=== PATIENT | female | born 2000 | race Hispanic/Latino ===

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

== ENCOUNTER 2022-05-01 23:42 | Emergency (ER) | payer MEDICAID, OTHER ==
[2022-05-02 00:22] LABS: #Eosinphils 0.1 10x3/uL (0.0-0.5); #Monocytes 0.7 10x3/uL (0.0-1.1); #Neutrophils 8.5 10x3/uL (1.5-8.4); %Basophils 0.2 % (0.0-2.0); %Eosinophils 1.1 % (0.0-6.0); %Lymphocytes 23.4 % (18.0-47.0); %Monocytes 5.6 % (0.0-10.0); %Neutrophils 69.1 % (40.0-75.0); Hemoglobin 11.7 g/dL (12.0-15.5); Mean Corpuscular HGB CONC 34.2 g/dL (32.0-36.0); Mean Corpuscular Hemoglobin 29.8 pg (27.0-33.0); Mean Corpuscular Volume 87.2 fl (81.6-98.3); Platelet Count 296 10x3/uL (150-450); RBC Distribution Width 12.9 % (11.5-14.5); Red Blood Cell (RBC) Count 3.92 10x6/uL (3.90-5.03); White Blood Cell (WBC) Count 12.3 10x3/uL (3.5-10.5)
[2022-05-02 00:34] LABS: ALT (SGPT) 15 U/L (8-55); AST (SGOT) 18 U/L (5-30); Albumin 3.4 g/dL (3.5-5.0); Alkaline Phosphatase 140 U/L (40-100); Anion Gap 13 mmol/L (10-20); BUN (Urea Nitrogen) 7 mg/dL (8.4-21.0); Bilirubin, Total 0.2 mg/dL (0.2-1.2); Calc. Creatinine Clearance 0 mL/min (70-130); Calcium 8.6 mg/dL (7.8-10.44); Carbon Dioxide 22 mmol/L (22-29); Chloride 104 mmol/L (98-107); Estimated GFR 134; Globulin 3.2 g/dL (2.4-3.5); Glucose 93 mg/dL (70-105); Lipase 58 U/L (8-78); Potassium 3.8 mmol/L (3.5-5.1); Protein, Total 6.6 g/dL (6.0-8.3); Sodium 135 mmol/L (136-145)
== END 2022-05-02 02:24 | disposition home or self-care (01) ==
LOC: CSHERS 23:42
DX: O99.891 Other specified diseases and conditions complicating pregnancy (principal); R07.89 Other chest pain; Z3A.29 29 weeks gestation of pregnancy
CPT/HCPCS: 36415; 71045; 80053; 83690; 84484; 85025; 93005

== ENCOUNTER 2022-06-24 20:16 | Inpatient (IN) | payer OTHER ==
[2022-06-24 20:45] VITALS: BMI 34.7
[2022-06-24] MEDS ORDERED: Butorphanol Tartrate 1 MG/ML VIAL SLOW IVP PRN (21:25)
[2022-06-24] MEDS ORDERED: hydrALAZINE 20 MG/ML VIAL SLOW IVP PRN (21:25)
[2022-06-24] MEDS ORDERED: Ondansetron PF 4 MG/2 ML Vial IVP PRN ×2 (21:25→22:31)
[2022-06-24] MEDS ORDERED: Docusate 100 MG CAP PO PRN (21:25)
[2022-06-24] MEDS ORDERED: Promethazine HCl 25 MG/ML VIAL IM PRN ×2 (21:25→22:31)
[2022-06-24] MEDS ORDERED: Lidocaine 1% (PF) 30 ML VIAL SC PRN (21:25)
[2022-06-24] MEDS ORDERED: Ibuprofen 800 MG TAB PO PRN (21:25)
[2022-06-24] MEDS ORDERED: Carboprost 250 MCG/ML AMP IM PRN (21:25)
[2022-06-24] MEDS ORDERED: Acetaminophen 500 MG TAB PO PRN (21:25)
[2022-06-24] MEDS ORDERED: HYDROcodone/Acetaminophen 5/325 mg Tablet PO PRN (21:25)
[2022-06-24] MEDS ORDERED: Methylergonovine 0.2 MG/ML VIAL IM PRN (21:25)
[2022-06-24] MEDS ORDERED: Diphenoxylate HCl/Atropine Tablet PO PRN ×2 (21:25)
[2022-06-24] MEDS ORDERED: Misoprostol 200 MCG TAB PR PRN (21:25)
[2022-06-24] MEDS ORDERED: NS w/ Oxytocin 30 units 500 ML IV SCH (21:30)
[2022-06-24] MEDS: Lactated Ringer's 1,000 ML IV SCH (21:42)
[2022-06-24] MEDS ORDERED: Fentanyl 2 mcg/Bup 0.1% Cadd 100 ML ONE (22:04)
[2022-06-24 22:10] LABS: Hemoglobin 12.2 g/dL (12.0-15.5); Mean Corpuscular HGB CONC 34.7 g/dL (32.0-36.0); Mean Corpuscular Volume 83.6 fl (81.6-98.3); Mean Platelet Volume 10.4 fl (7.4-10.4); Platelet Count 334 10x3/uL (150-450); Red Blood Cell (RBC) Count 4.21 10x6/uL (3.90-5.03); White Blood Cell (WBC) Count 13.9 10x3/uL (3.5-10.5)
[2022-06-24] MEDS ORDERED: Moisturizing Cream (Eucerin) 113 GM JAR TOP PRN (22:31)
[2022-06-24] MEDS ORDERED: Acetaminophen 325 MG TAB PO PRN (22:31)
[2022-06-24] MEDS ORDERED: diphenhydrAMINE 50 MG/ML VIAL IVP PRN (22:31)
[2022-06-24] MEDS ORDERED: ePHEDrine Sulfate 50 MG/10 ML VIAL SLOW IVP PRN (22:31)
[2022-06-24] MEDS ORDERED: Naloxone HCl 0.4 mg/ml Vial IVP PRN ×2 (22:31)
[2022-06-24] MEDS ORDERED: Lactated Ringer's 500 ML IV PRN (22:31)
[2022-06-24] MEDS ORDERED: Fentanyl 2 mcg/Bupivacaine 0.1% Cassette 100 ML EPIDURAL SCH (22:45)
[2022-06-24] MEDS ORDERED: Communication Order-Pharmacy FS SCH (22:45)
[2022-06-24] MEDS ORDERED: Lidocaine 1% PF 5 ML VIAL ONE (23:17)
[2022-06-24 23:40] LABS: HBSAg Index 0.25 S/CO (0-0.99); Hep B Surf Ag Non-Reactive S/CO (NonReactive)
[2022-06-24 23:41] LABS: Syphilis Antibody Nonreactive (Nonreactive); Syphilis Antibody Index 0.06 S/CO (<1.00 Non-Reactive)
[2022-06-25] MEDS ORDERED: Tranexamic Acid 1,000 MG/10 ML VIAL ONE (02:15)
[2022-06-25] MEDS ORDERED: Promethazine HCl 25 MG/ML VIAL IM PRN (07:49)
[2022-06-25] MEDS ORDERED: Milk Of Magnesia 30 ML UDCUP PO PRN (07:49)
[2022-06-25] MEDS ORDERED: hydrALAZINE 20 MG/ML VIAL SLOW IVP PRN (07:49)
[2022-06-25] MEDS ORDERED: diphenhydrAMINE 25 MG CAP PO PRN (07:49)
[2022-06-25] MEDS ORDERED: HYDROcodone/Acetaminophen 5/325 mg Tablet PO PRN (07:49)
[2022-06-25] MEDS ORDERED: Measles/Mumps/Rubella 10 MCG/0.5 ML VIAL SC ONE (07:49)
[2022-06-25] MEDS ORDERED: Bisacodyl 10 MG SUPP PR PRN (07:49)
[2022-06-25] MEDS ORDERED: Zolpidem Tartrate 5 MG TAB PO PRN (07:49)
[2022-06-25] MEDS ORDERED: NS w/ Oxytocin 30 units 500 ML IV SCH (07:49)
[2022-06-25] MEDS ORDERED: Misoprostol 200 MCG TAB VAG PRN (07:49)
[2022-06-25] MEDS ORDERED: Methylergonovine 0.2 MG/ML VIAL IM PRN (07:49)
[2022-06-25] MEDS ORDERED: Benzocaine-Menthol 82.5 ML CAN TOP PRN (07:49)
[2022-06-25] MEDS ORDERED: Varicella virus, LIVE 0.5 ML VIAL SC ONE (07:49)
[2022-06-25] MEDS ORDERED: Lanolin Ointment 7 GM TUBE TOP PRN (07:49)
[2022-06-25] MEDS ORDERED: Preparation H Ointment 28 GM TUBE PR PRN (07:49)
[2022-06-25] MEDS ORDERED: Ondansetron PF 4 MG/2 ML Vial IVP PRN (07:49)
[2022-06-25] MEDS ORDERED: Boostrix 0.5 ML (Tdap) VIAL (>/=7 yrs of age) IM ONE (07:49)
[2022-06-25] MEDS: Ferrous Sulfate 325 MG TAB PO SCH ×2 (08:26→17:35)
[2022-06-25] MEDS: Lactated Ringer's 1,000 ML IV SCH (08:26)
[2022-06-25] MEDS: Docusate 100 MG CAP PO SCH ×2 (09:10→21:13)
[2022-06-25] MEDS: Ibuprofen 800 MG TAB PO SCH ×2 (09:10→16:40)
[2022-06-25] MEDS: Prenatal Vitamin 1 TAB PO SCH (09:10)
[2022-06-26] MEDS: Ibuprofen 800 MG TAB PO SCH ×3 (00:08→17:05)
[2022-06-26 05:13] LABS: Mean Corpuscular HGB CONC 34.4 g/dL (32.0-36.0); Mean Corpuscular Hemoglobin 29.1 pg (27.0-33.0); Mean Corpuscular Volume 84.7 fl (81.6-98.3); Mean Platelet Volume 10.7 fl (7.4-10.4); Platelet Count 265 10x3/uL (150-450); RBC Distribution Width 13.2 % (11.5-14.5); Red Blood Cell (RBC) Count 3.78 10x6/uL (3.90-5.03); White Blood Cell (WBC) Count 10.8 10x3/uL (3.5-10.5)
[2022-06-26] MEDS: Docusate 100 MG CAP PO SCH ×2 (08:30→21:32)
[2022-06-26] MEDS: Prenatal Vitamin 1 TAB PO SCH (08:30)
[2022-06-26] MEDS: Ferrous Sulfate 325 MG TAB PO SCH ×2 (08:32→17:06)
[2022-06-26 16:35] LABS: HIV (1/2) Antibody/Antigen Non-Reactive (NonReactive); HIV 1/2 INDEX 0.17 S/CO (<1.00)
[2022-06-27] MEDS: Ibuprofen 800 MG TAB PO SCH ×2 (02:28→05:42)
[2022-06-27 08:04] VITALS: BP 117/63; TEMP 98.1
[2022-06-27] MEDS: Ferrous Sulfate 325 MG TAB PO SCH ×2 (09:02→17:38)
[2022-06-27] MEDS: Docusate 100 MG CAP PO SCH (09:14)
[2022-06-27] MEDS: Prenatal Vitamin 1 TAB PO SCH (09:14)
[2022-06-27] MEDS ORDERED: Ibuprofen 800 MG TAB PO SCH (14:00)
== END 2022-06-27 18:10 | disposition home or self-care (01) | DRG 805 ==
LOC: CSHLD/OP 20:16 → CSHLD 21:13 → CSHPP 06-25 08:10
PROVIDERS: ADMIT Obstetrics & Gynecology; ATTEND Obstetrics & Gynecology
PROC: 10E0XZZ Delivery of Products of Conception, External Approach (ICD-10-PCS; principal; 2022-06-25)
DX: O42.013 Preterm premature rupture of membranes, onset of labor within 24 hours of rupture, third trimester (principal); O60.14X0 Preterm labor third trimester with preterm delivery third trimester, not applicable or unspecified; Z37.0 Single live birth; Z3A.36 36 weeks gestation of pregnancy; E66.9 Obesity, unspecified; O99.214 Obesity complicating childbirth
CPT/HCPCS: 36415; 51702; 85027; 86780; 86850; 86900; 86901; 87340; 87389; 99285; J0595; J7120